=== PATIENT | female | born 1960 | race Caucasian/White ===

== ENCOUNTER 2017-03-16 08:48 | Emergency (ER) | payer BC, OTHER ==
[~2017-03-16] VITALS: Ht 167.6 cm; Wt 72.6 kg
[2017-03-16 08:48] VITALS: BP_SYST 133
--- NOTE | 2017-03-16 08:48 | NUR ---
BROUGHT BACK TO BED #3 AND TRIAGED. REPORT GIVEN TO [facility]
--- NOTE | 2017-03-16 09:02 | NUR ---
ER at bedside examining patient.
[2017-03-16] MEDS ORDERED: NACL 0.9% 1,000 ML IV ONE (09:04)
--- NOTE | 2017-03-16 09:05 | NUR ---
PT PRESENTS TO ED C/O LOWER ABD PAIN AND BLOOD IN STOOL .PT DENIES SIGNIFICANT MED HX. PT AAO X 4.ABD SOFT NONDISTENTED.GUAIC DONE.
[2017-03-16] MEDS ORDERED: MORPHINE 2 MG/ML INJ. SYRINGE IVP ONE (09:15)
[2017-03-16] MEDS ORDERED: ONDANSETRON HCL 4 MG/2 ML VIAL IVP ONE (09:15)
[2017-03-16 09:31] LABS: BASOPHILS % (AUTO) 0.4 % (0.0-2.0); EOSINOPHILS # (AUTO) 0.1 K/uL (0.0-0.4); EOSINOPHILS % (AUTO) 0.9 % (0.0-4.0); HEMATOCRIT 41.5 % (36-48); HEMOGLOBIN 13.9 g/dL (12.0-16.0); LYMPHOCYTES % (AUTO) 19.8 % (20.5-51.5); MEAN CORPUSCULAR HEMOGLOBIN 29 pg (27-31); MEAN CORPUSCULAR HGB CONC 34 % (32-36); MEAN CORPUSCULAR VOLUME 86 fL (79.0-98.0); MONOCYTES # (AUTO) 0.7 K/uL (0.0-1.0); MONOCYTES % (AUTO) 7.1 % (1.7-9.3); NEUTROPHILS # (AUTO) 7.1 K/uL (1.8-7.7); NEUTROPHILS % (AUTO) 71.8 % (40.0-70.0); PLATELET COUNT (AUTO) 241 K/uL (130-430); RED BLOOD CELL COUNT(AUTO) 4.84 MIL/uL (4.2-6.2); RED CELL DISTRIBUTION WIDTH 12.6 % (9.0-15.0); WHITE BLOOD COUNT (AUTO) 9.9 K/uL (4.8-10.8)
[2017-03-16 09:36] LABS: CALCIUM 8.8 mg/dL (8.4-11.0); CREATININE 0.66 mg/dL (0.55-1.30); POTASSIUM 3.4 mmol/L (3.5-5.1)
[2017-03-16 09:40] LABS: PROTHROMBIN TIME 10.6 SECS (9.5-12.5)
[2017-03-16 09:41] LABS: ALBUMIN 4.1 g/dL (3.4-4.8); TOTAL BILIRUBIN 0.6 mg/dL (0.0-1.0); TOTAL PROTEIN, SERUM 7.6 g/dL (6.4-8.3)
--- NOTE | 2017-03-16 10:20 | NUR ---
PT TOLERATED PAIN MEDICATION WELL. CONTINUING TO MONITOR.
[2017-03-16 11:00] VITALS: BP_SYST 128
--- NOTE | 2017-03-16 11:00 | NUR ---
Patient given written and verbal discharge instructions and verbalizes understanding. ER MD discussed with patient the results and treatment provided. Patient in stable condition. ID arm band removed. IV catheter removed intact and dressing applied, no active bleeding. Rx of [place] given. Patient educated on pain management and to follow up with PMD. Pain Scale 0/10. Opportunity for questions provided and answered.
== END 2017-03-16 11:00 | disposition home or self-care (01) ==
LOC: SED 08:48
DX: K62.5 Hemorrhage of anus and rectum (principal); K52.9 Noninfective gastroenteritis and colitis, unspecified
CPT/HCPCS: 36415; 74176; 80053; 83690; 85025; 85610; 85730; 96361; 96374; 96375; 99285; J2270; J2405; J7030